=== PATIENT | male | born 1990 | race Caucasian/White ===

== ENCOUNTER 2017-12-27 14:18 | Emergency (ER) | payer OTHER ==
[2017-12-27 14:34] VITALS: O2SAT 99
[2017-12-27] MEDS ORDERED: Alum-Mag Hydrox-Simethicone Susp (30 mL) PO STA (15:07)
[2017-12-27] MEDS ORDERED: Alum-Mag Hydrox-Simethicone Susp (30 mL) ONE (15:13)
--- NOTE | 2017-12-27 15:32 | RAD ---
HISTORY: COMPARISON: No prior. TECHNIQUE: Chest PA and lateral FINDINGS: LINES AND TUBES: None. LUNG AND PLEURA: The lungs are hyperinflated and there is peribronchial thickening with chronic changes in both lungs. No pleural effusion or pneumothorax. HEART AND MEDIASTINUM: The heart is not enlarged. The hilar and mediastinal contours are within normal limits. SKELETAL STRUCTURES: The bony structures are within normal limits for the patient's age. VISUALIZED UPPER ABDOMEN: Normal. OTHER FINDINGS: None. IMPRESSION: No active pulmonary disease. COPD.
--- NOTE | 2017-12-27 15:57 | ED PDOC ---
HPI: Chest Pain Time Seen by Provider: 12/27/17 14:39 Chief Complaint (Nursing): Chest Pain Chief Complaint (Provider): Chest Pain History Per: Patient History/Exam Limitations: no limitations Onset/Duration Of Symptoms: Hrs (x1) Current Symptoms Are (Timing): Still Present Additional Complaint(s): 27 y/o male with a pmhx of hypercholesterolemia, who presents to the ED for evaluation of intermittent sternal chest pain x1 hour. Patient describes as squeezing sensation. He reports no past episodes, but does report acid reflux in the past that has felt similar. He also reports recent stressors in his personal life and feeling anxious. States he had coffee and cereal this morning and has had increased belching since. Denies shortness of breath, fever, chills , cough, abdominal pain, nausea, vomiting, prolonged immobility, diaphoresis, jaw or arm pain, or radiation of pain. PMD: None Past Medical History Reviewed: Historical Data, Nursing Documentation, Vital Signs Vital Signs: Last Vital Signs Temp 98.3 F 12/27/17 14:31 Pulse 102 H 12/27/17 14:49 Resp 15 12/27/17 14:49 BP 126/72 12/27/17 14:49 Pulse Ox 99 12/27/17 16:02 - Medical History PMH: Hypercholesterolemia - Surgical History Surgical History: No Surg Hx - Family History Family History: States: Unknown Family Hx - Social History Current smoker - smoking cessation education provided: No Alcohol: Social Drugs: Denies - Home Medications Home Medications: Ambulatory Orders Medication Instructions Recorded Famotidine [Pepcid] 40 mg PO DAILY #10 tablet 12/27/17 - Allergies Allergies/Adverse Reactions: Allergies Allergy/AdvReac Type Severity Reaction Status Date / Time No Known Allergies Allergy Verified 12/27/17 14:31 Review of Systems ROS Statement: Except As Marked, All Systems Reviewed And Found Negative Constitutional: Negative for: Fever, Chills, Sweats ENT: Negative for: Other (jaw pain) Cardiovascular: Positive for: Chest Pain Respiratory: Negative for: Cough, Shortness of Breath Gastrointestinal: Negative for: Nausea, Vomiting, Abdominal Pain Musculoskeletal: Negative for: Arm Pain Psych: Positive for: Anxiety Physical Exam - Reviewed Nursing Documentation Reviewed: Yes Vital Signs Reviewed: Yes - Physical Exam Comments: GENERAL APPEARANCE: Patient is awake, alert, oriented x 3, in no acute distress , resting comfortably, calm, cooperative SKIN: Warm, dry; (-) cyanosis. EYES: (-) conjunctival pallor. ENMT: Mucous membranes moist. NECK: (-) tenderness, (-) stiffness, (-) lymphadenopathy, (-) JVD. CHEST AND RESPIRATORY: (-) rash, (-) chest wall tenderness. Lungs: (-) rales , (-) rhonchi, (-) wheezes, (-) rub; breath sounds equal bilaterally. HEART AND CARDIOVASCULAR: (-) irregularity; (-) murmur, (-) gallop, (-) rub. ABDOMEN AND GI: Soft; (-) distention, (-) tenderness, (-) palpable pulsatile mass. EXTREMITIES: (-) deformity; (-) edema, (-) calf tenderness. (+) distal pulses. NEURO AND PSYCH: Mental status as above. Cranial nerves grossly intact; strength symmetric. - ECG O2 Sat by Pulse Oximetry: 99 (RA) Pulse Ox Interpretation: Normal Medical Decision Making Medical Decision Makin:07 Initial Impression: chest pain, musculoskeletal vs GERD Plan: --CXR --Pepcid 40mg PO --Maalox Plus 30ml PO --Reevaluation --Patient offered to speak with crisis however declined. EKG: Sinus tach 119, no ST elevation, QTC 424 Repeat HR: 102 1545 CXR reviewed, radiology report follows HISTORY: COMPARISON: No prior. TECHNIQUE: Chest PA and lateral FINDINGS: LINES AND TUBES: None. LUNG AND PLEURA: The lungs are hyperinflated and there is peribronchial thickening with chronic changes in both lungs. No pleural effusion or pneumothorax. HEART AND MEDIASTINUM: The heart is not enlarged. The hilar and mediastinal contours are within normal limits. SKELETAL STRUCTURES: The bony structures are within normal limits for the patient's age. VISUALIZED UPPER ABDOMEN: Normal. OTHER FINDINGS: None. IMPRESSION: No active pulmonary disease. COPD. 1615 On re-evaluation, patient reports improvement of symptoms, denies any chest pain , SOB, abdominal pain, palpitations at this time. On exam, patient remains AAOx3 , in no acute distress. Lungs clear to auscultation, cardiac RRR, abdomen soft, non-tender, repeat neuro exam shows no focal findings. Repeat HR: ___ Lab/Diagnostic results d/w the patient in great detail. Diagnosis of chest pain , GERD vs anxiety d/w the patient. Based on history, exam and diagnostic results, plan will be for outpatient follow up. Patient instructed to follow-up with pmd / referral provided / the clinic in 1- 2 days without fail. Advised to take medication as prescribed. Return to the emergency room at any time for any new or worsening symptoms. Patient states he fully agrees with and understands discharge instructions. States that he agrees with the plan and disposition. Verbalized and repeated discharge instructions and plan. I have given the patient opportunity to ask any additional questions. Scribe Attestation: Documented by Aaron Barahona, acting as a scribe for Latisha Eli PA-C. Provider Scribe Attestation: All medical record entries made by the Scribe were at my direction and personally dictated by me. I have reviewed the chart and agree that the record accurately reflects my personal performance of the history, physical exam, medical decision making, and the department course for this patient. I have also personally directed, reviewed, and agree with the discharge instructions and disposition. Disposition - Clinical Impression Clinical Impression: Chest pain, Anxiety, Belching, Acid reflux - Patient ED Disposition Is Patient to be Admitted: No Counseled Patient/Family Regarding: Studies Performed, Diagnosis, Need For Followup, Rx Given - Disposition Referrals: [facility] [Outside] Disposition: Routine/Home Disposition Time: 16:14 Condition: STABLE Additional Instructions: FOLLOW UP WITH PMD/CLINIC IN 1-2 DAYS WITHOUT FAIL. RETURN TO ED WITH ANY NEW OR WORSENING SYMPTOMS. Prescriptions: Famotidine [Pepcid] 40 mg PO DAILY #10 tablet Instructions: Chest Pain That Is Not Caused by the Heart (DC), Acid Reflux ( Gastroesophageal Reflux Disease), Adult (DC), Gas and Bloating, Stress, Anxiety , Adult (DC) Forms: [facility] (Panamanian) Print Language: BENGALI - POA Present On Arrival: None
[2017-12-27 16:27] VITALS: BP 133/86; PULSE 94; RESP 16; TEMP 98.4
== END 2017-12-27 16:29 | disposition home or self-care (01) ==
LOC: H.ER 14:18
DX: R07.89 Other chest pain (principal); F41.9 Anxiety disorder, unspecified; K21.9 Gastro-esophageal reflux disease without esophagitis; R14.2 Eructation